=== PATIENT | male | born 1960 | race Caucasian/White ===

== ENCOUNTER 2023-03-05 06:39 | Emergency (ER) | payer MEDICAID, SELFPAY ==
[2023-03-05] VITALS (9 sets, daily range): BP systolic 117–124; BP diastolic 71–85; PULSE 58–76; RESP 14–21; O2SAT 97–100
--- NOTE | 2023-03-05 | ECG_ITS ---
Measurements Intervals [place] Rate: 72 P: 48 [place]: 165 QRS: -24 QRSD: 105 T: 63 QT: 374 QTc: 410 Interpretive Statements SINUS RHYTHM BORDERLINE LEFT AXIS DEVIATION [QRS AXIS < -20] INCOMPLETE RIGHT BUNDLE BRANCH BLOCK [90+ ms QRS DURATION, TERMINAL R IN V1/V2, 40+ ms S IN I/aVL/V4/V5/V6] ABNORMAL ECG NO PREVIOUS ECG AVAILABLE FOR COMPARISON Electronically Signed On 03-05-2023 7:53:09 CDT by Doe Moreno M.D.
--- NOTE | ~2023-03-05 | CT_ITS ---
EXAMINATION: CTA chest PE protocol DATE: 03/05/2023 08:05 INDICATION: Chest pain TECHNIQUE: Computed tomography angiography (CTA) of the chest was performed with 100 mL Omnipaque-350 intravenous contrast timed to evaluate the pulmonary arteries. Coronal maximum intensity projection 3D-reconstructions were created by the technologist. The dose-length product (DLP) was 654.22 mGy-cm. Automated exposure control and iterative reconstruction technique were employed. COMPARISON: None. FINDINGS: The pulmonary arteries are moderately well-opacified. No pulmonary embolism is identified. There is mild atelectasis of the lower lobes. No pleural effusion or pneumothorax. There is mild bila teral hilar lymphadenopathy, likely reactive. The heart size is normal. Mild bilateral gynecomastia i s noted. The gallbladder is surgically absent. There is mild thoracic spondylosis. IMPRESSION: 1. No pulmonary embolus identified. Mild atelectasis of the lower lobes. Reviewed, dictated and finalized at location A.
--- NOTE | ~2023-03-05 | CT_ITS ---
EXAMINATION: CT brain wo con INDICATION: Left-sided weakness COMPARISON: None TECHNIQUE: Standard unenhanced head CT. The dose-length product (DLP) was 681.00 mGy-cm. The mA was a djusted according to patient size. Iterative reconstruction technique was employed. FINDINGS: There is no intracranial hemorrhage, acute infarction, or abnormal mass lesion. The ventric les are normal. There is no abnormal mass effect or midline shift. The page-white matter differentiat ion is normal. The basal cisterns are patent. The orbits are normal. There is a left mastoid effusion . The paranasal sinuses, right mastoids and calvarium are normal. IMPRESSION: 1. No acute intracranial abnormality. 2. Left mastoid effusion. Reviewed, dictated and finalized at location A.
--- NOTE | ~2023-03-05 | XR_ITS ---
EXAMINATION: XR chest 1V portable INDICATION: Shortness of breath TECHNIQUE: Portable AP chest at 0658 hours COMPARISON: None available FINDINGS: There is mild atelectasis of the lower lobes. No pleural effusion or pneumothorax. The card iomediastinal silhouette is normal. IMPRESSION: 1. Mild atelectasis of the lower lobes. Reviewed, dictated and finalized at location A.
[2023-03-05 07:08] LABS: Basophils Percent Auto 0.7 % (0.2-1.2); Eosinophils Absolute Auto 0.3 K/mm3 (0-0.3); Eosinophils Percent Auto 4.4 % (0-4.4); Hematocrit 36.2 % (42.0-52.0); Hemoglobin 11.2 g/dL (14.0-18.0); Immature Granulocyte Absolute 0.02 K/mm3 (0.00-0.031); Immature Granulocyte Percent A 0.3 % (0-0.5); Lymphocytes Absolute Auto 1.34 K/mm3 (0.9-3.2); Lymphocytes Percent Auto 22.7 % (18.3-44.2); Mean Corpuscular HGB Conc 30.9 g/dl (32-36); Mean Corpuscular Hemoglobin 27.1 pg (26-34); Mean Corpuscular Volume 87.7 fl (80-100); Mean Platelet Volume 8.5 fl (7.4-10.4); Monocytes Absolute Auto 0.6 K/mm3 (0.1-0.6); Monocytes Percent Auto 10.3 % (2.6-8.5); Neutrophils Absolute Auto 3.6 K/mm3 (1.3-6.7); Neutrophils Percent Auto 61.6 % (45.5-73.1); Platelet Count Result 368 k/mm3 (150-375); Red Blood Count 4.13 M/mm3 (4.6-6.20); Red Cell Distribution Width 18.7 % (11.5-14.5); White Blood Count 5.9 K/mm3 (4.5-10.0)
[2023-03-05 07:14] LABS: Alanine Aminotransferase 27 U/L (6-50); Albumin Level 4.5 g/dL (3.5-5.1); Alkaline Phosphatase 72 U/L (38-126); Anion Gap 4 mmol/L (8-16); Aspartate Amino Transferase 31 U/L (17-59); Bilirubin,Total 0.5 mg/dL (0.2-1.3); Blood Urea Nitrogen 19 mg/dL (9-20); Calcium 9.2 mg/dL (8.4-10.2); Carbon Dioxide 30 mmol/L (22-30); Chloride 108 mmol/L (98-107); Estimated CRCL calculation 71 ml/min; Estimated Glomerular Filt Rate > 60; Glucose 113 mg/dL (65-110); Potassium 4.2 mmol/L (3.4-5.0); Sodium 142 mmol/L (137-145)
[2023-03-05 07:20] LABS: INR 1.1; Prothrombin Time 13.9 Seconds (11.1-14.7)
[2023-03-05 07:21] LABS: Partial Thromboplastin Time 26.1 SECONDS (22.3-36.8)
[2023-03-05 07:26] LABS: Troponin I < 0.012 ng/mL (0.000-0.034)
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
[2023-03-05] MEDS: MORPHINE SULFATE (*CRX) 4 MG/ML INJ IV PUSH (08:01)
[2023-03-05] MEDS: KETOROLAC 30 MG/ML VIAL (*BKC) IV PUSH (10:11)
[2023-03-05 10:23] LABS: Troponin I < 0.012 ng/mL (0.000-0.034)
== END 2023-03-05 12:51 | disposition home or self-care (01) ==
PROVIDERS: Emergency Medicine; Emergency Provider Emergency Medicine
DX: R07.89 Other chest pain (principal); I11.0 Hypertensive heart disease with heart failure; I50.9 Heart failure, unspecified; E11.9 Type 2 diabetes mellitus without complications; E78.5 Hyperlipidemia, unspecified; Z79.82 Long term (current) use of aspirin; Z87.891 Personal history of nicotine dependence
CPT/HCPCS: 36415; 70450; 71045; 71275; 80053; 84484; 85025; 85610; 85730; 93005; 96374; 96375; 99284; J1885; J2270; J7030; Q9967